=== PATIENT | female | born 1980 | race Caucasian/White ===

== ENCOUNTER 2018-11-02 03:19 | Inpatient (IN) | payer MEDICAID, SELFPAY ==
[~2018-11-02] VITALS: Ht 170.2 cm; Wt 75.7 kg
[2018-11-02] MEDS ORDERED: SODIUM CHLORIDE 0.9% 1,000 ML IV ONE (03:37)
[2018-11-02] MEDS ORDERED: ONDANSETRON 2MG/ML, 2ML ONE ×2 (03:40→10:31)
[2018-11-02] MEDS ORDERED: MORPHINE SULFATE 4 MG/ML, 1ML ONE (03:41)
--- NOTE | 2018-11-02 03:50 | NUR ---
PT HERE FROM [facility] FOR LLQ PAIN WITH N/V. PT HERE FOR OBGYN CONSULT. VSS. PT MEDICATED FOR PAIN AND NAUSEA. PT HAS NO NEEDS AT THIS TIME. CALL LIGHT IN REACH
[2018-11-02 03:52] VITALS: BP 120/80
[2018-11-02] MEDS ORDERED: MORPHINE SULFATE 4 MG/ML, 1ML IVPush PRN (04:00)
[2018-11-02] MEDS ORDERED: ONDANSETRON 2MG/ML, 2ML IVPush ONE (04:00)
[2018-11-02] MEDS ORDERED: SODIUM CHLORIDE FLUSH 10ML SYR IVF ONE (04:00)
[2018-11-02] MEDS ORDERED: ARIP30TA4 PO (04:44)
--- NOTE | 2018-11-02 04:50 | NUR ---
REPORT TO OR. PTS PAIN HAS IMPROVED TO 5/10. PT TO GO TO SURGERY
[2018-11-02] MEDS ORDERED: FENTANYL PF 250 MCG/5ML ONE (05:18)
[2018-11-02] MEDS ORDERED: MIDAZOLAM 1 MG/ML, 2ML ONE ×2 (05:18→07:23)
[2018-11-02] MEDS ORDERED: LABETALOL 5MG/ML, 20ML IV PRN (06:00)
[2018-11-02] MEDS ORDERED: PROMETHAZINE 25 MG/ML, 1ML IV PRN (06:00)
[2018-11-02] MEDS ORDERED: METOCLOPRAMIDE 5 MG/ML, 2ML IV PRN (06:00)
[2018-11-02] MEDS ORDERED: ONDANSETRON 2MG/ML, 2ML IVPush PRN (06:00)
[2018-11-02] MEDS ORDERED: hydrALAzine 20 MG/ML, 1ML IV PRN (06:00)
[2018-11-02] MEDS ORDERED: OXYcodone 5 MG/5 ML ORAL.SOL UDC PO PRN (06:00)
[2018-11-02] MEDS ORDERED: MEPERIDINE/PF 25MG/0.5ML IVPush PRN (06:00)
[2018-11-02] MEDS ORDERED: ALBUTEROL SULFATE 2.5 MG/3 ML NPPB PRN (06:00)
[2018-11-02] MEDS ORDERED: KETOROLAC 30 MG/1 ML IV PRN (06:00)
[2018-11-02] MEDS ORDERED: FENTANYL PF 100 MCG/2ML ONE ×2 (06:22→06:33)
[2018-11-02] MEDS ORDERED: OXYcodone 5 MG/5 ML ORAL.SOL UDC ONE (06:34)
[2018-11-02] MEDS: FENTANYL PF 100 MCG/2ML IV PRN ×2 (06:36→06:47)
[2018-11-02] MEDS ORDERED: HYDROmorphone 2 MG/ML, 1ML ONE (06:40)
[2018-11-02] MEDS ORDERED: KETOROLAC 30 MG/1 ML ONE ×2 (06:40→10:31)
[2018-11-02] MEDS: HYDROmorphone 1 MG/ML, 1ML INJ IV PRN ×4 (06:44→07:34)
[2018-11-02] MEDS ORDERED: MEPERIDINE/PF 25MG/ML,1ML ONE (07:23)
[2018-11-02] MEDS ORDERED: MIDAZOLAM 1 MG/ML, 2ML IVPush PRN (07:30)
[2018-11-02] MEDS ORDERED: DEXAMETHASONE 4 MG/ML, 1ML ONE (10:31)
[2018-11-02] MEDS ORDERED: NEOSTIGMINE 1 MG/ML, 10ML ONE (10:31)
[2018-11-02] MEDS ORDERED: PROPOFOL 10 MG/ML, 20ML ONE (10:31)
[2018-11-02] MEDS ORDERED: GLYCOPYRROLATE 0.2MG/1ML, 5ML ONE (10:31)
[2018-11-02] MEDS ORDERED: ROCURONIUM 10MG/ML,5ML ONE (10:31)
[2018-11-02] MEDS ORDERED: CEFAZOLIN 1,000 MG ONE (10:31)
[2018-11-02] MEDS ORDERED: SUCCINYLCHOLINE 20 MG/ML, 10ML ONE (10:31)
== END 2018-11-02 23:56 | disposition home or self-care (01) | DRG 742 ==
LOC: ED 03:38 → EDIP 04:36 → 5SO 23:54 → EDIP 23:55
PROVIDERS: ADMIT Obstetrics & Gynecology; ATTEND Obstetrics & Gynecology
PROC: 0UT00ZZ Resection of Right Ovary, Open Approach (ICD-10-PCS; 2018-11-02)
PROC: 0UT50ZZ Resection of Right Fallopian Tube, Open Approach (ICD-10-PCS; principal; 2018-11-02 04:15)
DX: D28.7 Benign neoplasm of other specified female genital organs (principal); N83.511 Torsion of right ovary and ovarian pedicle; N83.292 Other ovarian cyst, left side; F10.10 Alcohol abuse, uncomplicated; Z88.0 Allergy status to penicillin
CPT/HCPCS: 88305; J0690; J1100; J1170; J1885; J2250; J2405; J2704; J2710; J3010; J0330; J7030